=== PATIENT | female | born 1950 ===

== ENCOUNTER 2017-06-02 13:27 | Emergency (ER) | payer MEDICARE, OTHER ==
[2017-06-02 13:29] VITALS: BMI 29.3
[2017-06-02 13:50] VITALS: RESP 17
[2017-06-02] MEDS ORDERED: Sodium Chloride 0.9% 1,000 ML IV STA (13:52)
[2017-06-02] MEDS ORDERED: Alum-Mag Hydrox-Simethicone Susp (30 mL) PO STA (13:53)
[2017-06-02] MEDS ORDERED: Atrop/Hyosc/Scopal/PB Elixir (120 ml) PO STA (13:54)
--- NOTE | 2017-06-02 14:15 | ED PDOC ---
Arrival/HPI - General Chief Complaint: Abdominal Pain Time Seen by Provider: 06/02/17 13:51 Historian: Patient - History of Present Illness Narrative History of Present Illness (Text): 06/02/17 14:07 67 yo F with past medical history of anxiety, IBS and rheumatoid arthritis, complains of multiple episodes of diarrhea since 5 AM, 2 hours after developing diarrhea she started having gradual onset of intermittent upper abdominal pain described as gas pain, associated with nausea. 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 Reports having similar episodes in the past. Otherwise: (-) vomiting, (-) urinary symptoms, (-) fever, (-) melena, (-) hematochezia. Has history of prior abdominal surgery - cholecystectomy, appendectomy and hysterectomy. PMJermaine Bonner Past Medical History - Provider Review Nursing Documentation Reviewed: Yes - Infectious Disease Hx of Infectious Diseases: None - Tetanus Immunization Tetanus Immunization: Unknown - Cardiac Hx Cardiac Disorders: No - Pulmonary Hx Respiratory Disorders: No - Neurological Hx Neurological Disorder: No - HEENT Hx HEENT Disorder: No - Renal Hx Renal Disorder: No - Endocrine/Metabolic Hx Endocrine Disorders: No - Hematological/Oncological Hx Blood Disorders: No - Integumentary Hx Dermatological Disorder: No - Musculoskeletal/Rheumatological Hx Musculoskeletal Disorders: Yes Hx Arthritis: Yes Hx Rheumatoid Arthritis: Yes - Gastrointestinal Hx Gastrointestinal Disorders: Yes Hx Irritable Bowel: Yes - Genitourinary/Gynecological Hx Genitourinary Disorders: No - Psychiatric Hx Anxiety: Yes Hx Depression: Yes Hx Substance Use: No - Surgical History Hx Appendectomy: Yes Hx Section: Yes Hx Cholecystectomy: Yes - Anesthesia Hx Anesthesia: Yes Hx Anesthesia Reactions: No - Suicidal Assessment Feels Threatened In Home Enviroment: No Family/Social History - Physician Review Nursing Documentation Reviewed: Yes Family/Social History: No Known Family HX Smoking Status: Light Smoker < 10 Cigarettes Daily Hx Alcohol Use: No Hx Substance Use: No Hx Substance Use Treatment: No Allergies/Home Meds Allergies/Adverse Reactions: Allergies No Known Allergies Allergy (Verified 06/02/17 13:29) Review of Systems - Review of Systems Constitutional: Normal. absent: Fatigue, Weight Change, Fevers Respiratory: Normal. absent: SOB, Cough, Sputum Cardiovascular: Normal. absent: Chest Pain, Palpitations, Edema Gastrointestinal: Normal, Abdominal Pain, Diarrhea, Nausea. absent: Hematochezia, Hematemesis Musculoskeletal: Normal. absent: Arthralgias, Back Pain, Neck Pain Skin: Normal. absent: Rash, Pruritis, Skin Lesions Physical Exam - Physical Exam Narrative Physical Exam (Text): 06/02/17 14:15 GENERAL APPEARANCE: Patient is awake, alert, oriented x 3, in moderate painful distress. SKIN: Warm, dry; (-) cyanosis. EYES: (-) conjunctival pallor, (-) scleral icterus. ENMT: Mucous membranes dry. NECK: (-) tenderness, (-) stiffness, (-) lymphadenopathy. CHEST AND RESPIRATORY: (-) rales, (-) rhonchi, (-) wheezes; breath sounds equal bilaterally. HEART AND CARDIOVASCULAR: (-) irregularity; (-) murmur, (-) gallop. ABDOMEN AND GI: (-) distention. Bowel sounds active; (+) mid abdominal tenderness, (-) guarding, (-) rebound, (-) palpable masses, (-) CVA tenderness. EXTREMITIES: (-) deformity, (-) edema, (+) distal pulses. NEURO AND PSYCH: Mental status as above; (-) focal findings. Vital Signs Temp Pulse Resp BP Pulse Ox 06/02/17 15:27 98.7 F 76 17 127/70 100 06/02/17 13:33 97.6 F 77 17 129/86 98 Medical Decision Making ED Course and Treatment: 06/02/17 14:20 67 yo F with past medical history of anxiety, IBS and rheumatoid arthritis, complains of multiple episodes of diarrhea since 5 AM, 2 hours after developing diarrhea she started having gradual onset of intermittent upper abdominal pain described as gas pain, associated with nausea. Plan: - Labs - IVF - UA - Pepcid IV / zofran IV / GI cocktail - maalox, viscous lidocaine - Reassess / disposition 06/02/17 15:09 On reevaluation, patient is laying in bed comfortably in no acute distress. Patient reports significant improvement of abdominal pain, reports no nausea and reports no further episodes of diarrhea in the emergency room. On exam, abdomen remains soft with no tenderness, no guarding, no rebound. Lab results reviewed and discussed the patient in great detail. Patient states that she has zantac at home and has not been taking it for a while. Otherwise advised to follow up with primary care physician in 1-2 days without fail. Return to the emergency room at any time for any new or worsening symptoms. Patient states she fully agrees with and understands discharge instructions. States that she agrees with the plan and disposition. Verbalized and repeated discharge instructions and plan. I have given the patient opportunity to ask any additional questions. - Lab Interpretations Lab Results: 06/02/17 14:06 06/02/17 14:06 Lab Results 06/02/17 14:50: Urine Color Yellow, Urine Appearance Clear, Urine pH 6.0, Ur Specific [place] >= 1.030, Urine Protein 30 H, Urine Glucose (UA) Negative, Urine Ketones Negative, Urine Blood Trace-intact H, Urine Nitrate Negative, Urine Bilirubin Negative, Urine Urobilinogen 0.2, Ur Leukocyte Esterase Negative , Urine RBC 0 - 2, Urine WBC 1 - 3, Ur Epithelial Cells 6 - 8, Urine Bacteria Small 06/02/17 14:06: Sodium 141, Potassium 3.9, Chloride 106, Carbon Dioxide 26, Anion Gap 13, BUN 16, Creatinine 0.8, Est GFR ( Amer) > 60, Est GFR (Non- Af Amer) > 60, Random Glucose 99, Calcium 8.7, Total Bilirubin 0.5, AST 45 H, ALT 46, Alkaline Phosphatase 129 H, Total Protein 7.6, Albumin 4.1, Globulin 3.5 , Albumin/Globulin Ratio 1.2, Lipase 91 06/02/17 14:06: PT 10.8, INR 1.00, APTT 25.7 06/02/17 14:06: WBC 7.7, RBC 4.25, Hgb 13.2, Hct 39.3, MCV 92.5, MCH 31.1, MCHC 33.6, RDW 13.9, Plt Count 299, MPV 11.4 H, Gran % 60.4, Lymph % (Auto) 27.7, [place] % (Auto) 9.0 H, Eos % (Auto) 2.5, Baso % (Auto) 0.4, Gran # 4.66, Lymph # 2.1, [place] # 0.7 H, Eos # 0.2, Baso # 0.03 - Medication Orders Current Medication Orders: Discontinued Medications Al Hydrox/Mg Hydrox/Simethicone (Maalox Plus 30 Ml) 30 ml PO STAT STA Stop: 06/02/17 13:54 Last Admin: 06/02/17 14:24 Dose: 30 ml Belladonna/Phenobarbital ( Elixir) 5 ml PO STAT STA Stop: 06/02/17 13:55 Last Admin: 06/02/17 14:28 Dose: 5 ml Famotidine (Pepcid) 20 mg IVP STAT STA Stop: 06/02/17 13:53 Last Admin: 06/02/17 14:20 Dose: 20 mg Sodium Chloride (Sodium Chloride 0.9%) 1,000 mls @ 1,000 mls/hr IV .Q1H STA Stop: 06/02/17 14:51 Last Admin: 06/02/17 14:07 Dose: 1,000 mls/hr Lidocaine HCl (Lidocaine 2% Viscous) 15 ml PO STAT STA Stop: 06/02/17 13:54 Last Admin: 06/02/17 14:24 Dose: 15 ml Ondansetron HCl (Zofran Inj) 4 mg IVP STAT STA Stop: 06/02/17 13:53 Last Admin: 06/02/17 14:23 Dose: 4 mg - PA / POLITICAL ORGANIZER / Resident Statement / has reviewed & agrees with the documentation as recorded. Disposition/Present on Arrival - Present on Arrival Any Indicators Present on Arrival: No History of DVT/PE: No History of Uncontrolled Diabetes: No Urinary Catheter: No History of Decub. Ulcer: No History Surgical Site Infection Following: None - Disposition Have Diagnosis and Disposition been Completed?: Yes Diagnosis: Abdominal pain, Dyspepsia Disposition: HOME/ ROUTINE Disposition Time: 15:30 Patient Plan: Discharge Condition: IMPROVED Discharge Instructions (ExitCare): Chronic Indigestion (ED), Acute Abdominal Pain (ED) Print Language: DOMINICAN Additional Instructions: Thank you for letting us take care of you today. You were treated for abdominal pain, dyspepsia. The emergency medical care you received today was directed at your acute symptoms. If you were prescribed any medication, please fill it and take as directed. It may take several days for your symptoms to resolve. Return to the Emergency Department if your symptoms worsen, do not improve, or if you have any other problems. Please contact your doctor in 2 days for re-evaluation and follow up. Bring any paperwork you were given at discharge with you along with any medications you are taking to your follow up visit. Our treatment cannot replace ongoing medical care by a primary care provider (PCP) outside of the emergency department. Thank you for allowing the [facility] team to be part of your care today. Referrals: Nesha Chavez MD [Medical Doctor] - Follow up with primary Forms: [employer] (Faroese)
[2017-06-02 14:19] LABS: BASO # 0.03 K/mm3 (0.0-2.0); BASO % 0.4 % (0.0-3.0); EOS # 0.2 (0.0-0.7); EOS % 2.5 % (1.5-5.0); GRAN # 4.66 (1.4-6.5); GRAN % 60.4 % (50.0-68.0); HEMATOCRIT 39.3 % (36.0-48.0); LYMPH # 2.1 (1.2-3.4); LYMPH % 27.7 % (22.0-35.0); MEAN CELL VOLUME 92.5 fl (80.0-105.0); MEAN CORPUSCULAR HEMOGLOBIN 31.1 pg (25.0-35.0); MEAN CORPUSCULAR HGB CONC 33.6 g/dl (31.0-37.0); MEAN PLATELET VOLUME 11.4 fl (7.0-11.0); MONO # 0.7 (0.1-0.6); RED CELL DISTRIBUTION WIDTH 13.9 % (11.5-14.5); WHITE BLOOD COUNT 7.7 10^3/ul (4.5-11.0)
[2017-06-02 14:23] LABS: ALB/GLOB RATIO 1.2 (1.1-1.8); ALKALINE PHOSPHATASE 129 U/L (38-126); ALT/SGPT 46 U/L (7-56); AST/SGOT 45 U/L (14-36); BILIRUBIN,TOTAL 0.5 mg/dL (0.2-1.3); BLOOD UREA NITROGEN 16 mg/dL (7-21); CALCIUM 8.7 mg/dL (8.4-10.5); CARBON DIOXIDE 26 mmol/L (21-33); CHLORIDE 106 mmol/L (98-107); GFR AFRICAN-AMERICAN > 60; GLUCOSE,RANDOM 99 mg/dL (70-110); LIPASE 91 U/L (23-300); POTASSIUM 3.9 mmol/L (3.6-5.0); SODIUM 141 mmol/L (132-148); TOTAL PROTEIN 7.6 g/dL (5.8-8.3)
[2017-06-02 14:27] LABS: PARTIAL THROMBOPLASTIN TIME 25.7 Seconds (23.7-30.8)
[2017-06-02 15:18] LABS: URINE BILIRUBIN NEGATIVE (NEGATIVE); URINE BLOOD TRACE-INTACT (NEGATIVE); URINE GLUCOSE (UA) NEGATIVE (NEGATIVE); URINE KETONE NEGATIVE (NEGATIVE); URINE LEUKOCYTE ESTERASE NEGATIVE Leu/uL (NEGATIVE); URINE PROTEIN 30 mg/dL (<30 mg/dL); URINE UROBILINOGEN 0.2 E.U./dL (<1 E.U./dL)
[2017-06-02 15:27] LABS: URINE APPEARANCE CLEAR (CLEAR); URINE COLOR YELLOW (YELLOW)
[2017-06-02 15:30] LABS: URINE RBC 0 - 2 /hpf (0-2)
[2017-06-02 15:32] LABS: URINE BACTERIA SMALL (NEG)
[2017-06-02 15:57] VITALS: BP 127/70; PULSE 76; TEMP 98.7; O2SAT 100
== END 2017-06-02 15:58 | disposition home or self-care (01) ==
LOC: ED 13:27
DX: R10.13 Epigastric pain (principal); M06.9 Rheumatoid arthritis, unspecified; Z90.49 Acquired absence of other specified parts of digestive tract
CPT/HCPCS: 80053; 81001; 83690; 85025; 85610; 85730; 87086; 96361; 96374; 96375; 99283; J2405; J7040

== ENCOUNTER 2017-08-28 00:25 | Emergency (ER) | payer MEDICARE, OTHER ==
[2017-08-28 00:25] VITALS: BMI 29.3
[2017-08-28 00:36] VITALS: RESP 18; TEMP 98.3
--- NOTE | 2017-08-28 01:27 | ED PDOC ---
Arrival/HPI - General Chief Complaint: GI Problem Time Seen by Provider: 08/28/17 00:48 Historian: Patient - History of Present Illness Narrative History of Present Illness (Text): 08/28/17 01:27 Josafat Choudhury is a 67 year old female, whose past medical history includes anxiety, IBS, RA, and bipolar disorder, who presents to the Emergency department complaining of multiple episodes of diarrhea since yesterday morning. Patient reports associated abdominal cramping and nausea. Patient denies any fever, chills, chest pain, shortness of breath, vomiting, urinary symptoms, back pain, neck pain, headache, dizziness, or any other complaints. PMD: Dr. Chapin Bonner Time/Duration: Other (yesterday morning) Symptom Onset: Gradual Symptom Course: Unchanged Activities at Onset: Light Context: Home Past Medical History - Provider Review Nursing Documentation Reviewed: Yes - Infectious Disease Hx of Infectious Diseases: None - Tetanus Immunization Tetanus Immunization: Unknown - Cardiac Hx Cardiac Disorders: No - Pulmonary Hx Respiratory Disorders: No - Neurological Hx Neurological Disorder: No - HEENT Hx HEENT Disorder: No - Renal Hx Renal Disorder: No - Endocrine/Metabolic Hx Endocrine Disorders: No - Hematological/Oncological Hx Blood Disorders: No - Integumentary Hx Dermatological Disorder: No - Musculoskeletal/Rheumatological Hx Musculoskeletal Disorders: Yes Hx Arthritis: Yes Hx Rheumatoid Arthritis: Yes - Gastrointestinal Hx Gastrointestinal Disorders: Yes Hx Irritable Bowel: Yes - Genitourinary/Gynecological Hx Genitourinary Disorders: No - Psychiatric Hx Anxiety: Yes Hx Depression: Yes Hx Substance Use: No - Surgical History Hx Appendectomy: Yes Hx Section: Yes Hx Cholecystectomy: Yes - Anesthesia Hx Anesthesia: Yes Hx Anesthesia Reactions: No - Suicidal Assessment Feels Threatened In Home Enviroment: No Family/Social History - Physician Review Nursing Documentation Reviewed: Yes Family/Social History: Unknown Family HX Smoking Status: Light Smoker < 10 Cigarettes Daily Hx Alcohol Use: No Hx Substance Use: No Hx Substance Use Treatment: No Allergies/Home Meds Allergies/Adverse Reactions: Allergies No Known Allergies Allergy (Verified 06/02/17 13:29) Home Medications: Home Meds Medication Instructions Recorded Confirmed Clonazepam [Klonopin] 0.5 mg PO PRN PRN 08/28/17 08/28/17 Levothyroxine [Synthroid] 25 mcg PO DAILY 08/28/17 08/28/17 Review of Systems - Physician Review All systems were reviewed & negative as marked: Yes - Review of Systems Constitutional: Normal. absent: Fevers Eyes: Normal ENT: Normal Respiratory: Normal. absent: SOB, Cough Cardiovascular: Normal. absent: Chest Pain Gastrointestinal: Abdominal Pain, Diarrhea, Nausea. absent: Vomiting Genitourinary Female: Normal. absent: Dysuria, Hematuria, Urine Output Changes Musculoskeletal: Normal. absent: Back Pain, Neck Pain Skin: Normal. absent: Rash Neurological: Normal. absent: Headache, Dizziness Endocrine: Normal Hemo/Lymphatic: Normal Psychiatric: Normal Physical Exam Vital Signs Reviewed: Yes Vital Signs Temp Pulse Resp BP Pulse Ox 08/28/17 04:13 98.3 F 75 18 119/73 97 08/28/17 00:34 98.3 F 103 H 18 103/69 96 Temperature: Afebrile Blood Pressure: Normal Pulse: Regular Respiratory Rate: Normal Appearance: Positive for: Well-Appearing, Non-Toxic, Comfortable Pain Distress: None Mental Status: Positive for: Alert and Oriented X 3 - Systems Exam Head: Present: Atraumatic, Normocephalic Pupils: Present: PERRL Extroacular Muscles: Present: EOMI Conjunctiva: Present: Normal Mouth: Present: Moist Mucous Membranes Neck: Present: Normal Range of Motion Respiratory/Chest: Present: Clear to Auscultation, Good Air Exchange. No: Respiratory Distress, Accessory Muscle Use Cardiovascular: Present: Regular Rate and Rhythm, Normal S1, S2. No: Murmurs Abdomen: Present: Normal Bowel Sounds. No: Tenderness, Distention, Peritoneal Signs Back: Present: Normal Inspection Upper Extremity: Present: Normal Inspection. No: Cyanosis, Edema Lower Extremity: Present: Normal Inspection. No: Edema Neurological: Present: GCS=15, CN II-XII Intact, Speech Normal Skin: Present: Warm, Dry, Normal Color. No: Rashes Psychiatric: Present: Alert, Oriented x 3, Normal Insight, Normal Concentration Medical Decision Making ED Course and Treatment: 08/28/17 01:27 Impression: 67 year old female complaining of multiple episodes of diarrhea, nausea, and abdominal cramping since yesterday morning. Differential Diagnosis included but are not limited to: IBS vs. gastroenteritis Plan: -- Labs, lipase -- IV fluids -- Reassess and disposition Prior Visits: Notes and results from previous visits were reviewed. On 06/02/2017, pt was seen in the Emergency department for multiple episodes of diarrhea, upper abdominal pain, and nausea. Pt was d/c home. Progress Notes: 08/28/17 05:25 On re-evaluation, patient feels better and is in no acute distress. I have discussed the results and plan with the patient, who expresses understanding. Patient in agreement with plan to be discharged home. Patient is stable for discharge. Patient was instructed to follow up with physician or return if symptoms worsen or new concerning symptoms arise. - Lab Interpretations Lab Results: 08/28/17 00:45 08/28/17 00:45 Lab Results 08/28/17 00:45: WBC 9.9 D, RBC 4.36, Hgb 13.8, Hct 40.2, MCV 92.2, MCH 31.7, MCHC 34.3, RDW 13.9, Plt Count 306, MPV 11.8 H 08/28/17 00:45: Sodium 139, Potassium 3.9, Chloride 105, Carbon Dioxide 23, Anion Gap 14, BUN 18, Creatinine 0.9, Est GFR ( Amer) > 60, Est GFR (Non- Af Amer) > 60, Random Glucose 109, Calcium 9.2, Total Bilirubin 0.7, AST 34, ALT 37, Alkaline Phosphatase 112, Total Protein 7.9, Albumin 4.1, Globulin 3.8, Albumin/Globulin Ratio 1.1, Lipase 85 I have reviewed the lab results: Yes - Medication Orders Current Medication Orders: Discontinued Medications Ciprofloxacin (Cipro) 500 mg PO ONCE STA PRN Reason: Protocol Stop: 08/28/17 05:21 Last Admin: 08/28/17 05:35 Dose: 500 mg Sodium Chloride (Sodium Chloride 0.9%) 1,000 mls @ 999 mls/hr IV .Q1H1M STA Stop: 08/28/17 02:28 Last Admin: 08/28/17 01:41 Dose: 999 mls/hr eMAR Start Stop Document 08/28/17 01:41 OCS (Rec: 08/28/17 01:41 OCS [id number]) Intravenous Solution Start Date 08/28/17 Start Time 01:41 End Date 08/28/17 End time 02:42 Total Infusion Time 61 Ondansetron HCl (Zofran Inj) 4 mg IVP ONCE ONE Stop: 08/28/17 04:15 Last Admin: 08/28/17 04:29 Dose: 4 mg IVP Administration Document 08/28/17 04:29 OCS (Rec: 08/28/17 04:29 OCS [id number]) Charges for Administration # of IVP Administrations 1 - Scribe Statement The provider has reviewed the documentation as recorded by the Martiibshilo Llanes Provider Scribe Attestation: All medical record entries made by the Scribe were at my direction and personally dictated by me. I have reviewed the chart and agree that the record accurately reflects my personal performance of the history, physical exam, medical decision making, and the department course for this patient. I have also personally directed, reviewed, and agree with the discharge instructions and disposition. Disposition/Present on Arrival - Present on Arrival Any Indicators Present on Arrival: No History of DVT/PE: No History of Uncontrolled Diabetes: No Urinary Catheter: No History of Decub. Ulcer: No History Surgical Site Infection Following: None - Disposition Have Diagnosis and Disposition been Completed?: Yes Diagnosis: Irritable bowel syndrome (IBS), Diarrhea Disposition: HOME/ ROUTINE Disposition Time: 05:25 Patient Plan: Discharge Condition: GOOD Discharge Instructions (ExitCare): Acute Diarrhea (ED) Additional Instructions: Drink plenty of liquids/Gatorade/take meds as prescribed/follow up with your doctor this week Prescriptions: Ciprofloxacin [Cipro] 500 mg PO BID #6 tab Referrals: Don Bonner MD [Primary Care Provider] - Follow up with primary Forms: [employer] (Citizen [place])
[2017-08-28] MEDS ORDERED: Sodium Chloride 0.9% 1,000 ML IV STA (01:28)
[2017-08-28 02:18] LABS: ALB/GLOB RATIO 1.1 (1.1-1.8); ALKALINE PHOSPHATASE 112 U/L (38-126); ALT/SGPT 37 U/L (7-56); AST/SGOT 34 U/L (14-36); BILIRUBIN,TOTAL 0.7 mg/dL (0.2-1.3); BLOOD UREA NITROGEN 18 mg/dL (7-21); CALCIUM 9.2 mg/dL (8.4-10.5); CARBON DIOXIDE 23 mmol/L (21-33); CHLORIDE 105 mmol/L (98-107); GFR AFRICAN-AMERICAN > 60; GLUCOSE,RANDOM 109 mg/dL (70-110); LIPASE 85 U/L (23-300); POTASSIUM 3.9 mmol/L (3.6-5.0); SODIUM 139 mmol/L (132-148); TOTAL PROTEIN 7.9 g/dL (5.8-8.3)
[2017-08-28 02:26] LABS: HEMATOCRIT 40.2 % (36.0-48.0); MEAN CELL VOLUME 92.2 fl (80.0-105.0); MEAN CORPUSCULAR HEMOGLOBIN 31.7 pg (25.0-35.0); MEAN CORPUSCULAR HGB CONC 34.3 g/dl (31.0-37.0); MEAN PLATELET VOLUME 11.8 fl (7.0-11.0); RED CELL DISTRIBUTION WIDTH 13.9 % (11.5-14.5); WHITE BLOOD COUNT 9.9 10^3/ul (4.5-11.0)
[2017-08-28 04:13] VITALS: BP 119/73; PULSE 75; O2SAT 97
== END 2017-08-28 05:35 | disposition home or self-care (01) ==
LOC: ED 00:25
DX: K58.0 Irritable bowel syndrome with diarrhea (principal)
CPT/HCPCS: 80053; 83690; 85027; 96361; 96374; 99283; J2405; J7040

== ENCOUNTER 2018-04-12 23:09 | Observation (INO) | payer MEDICARE, OTHER ==
[2018-04-12 23:24] VITALS: BMI 29.7
[2018-04-12 23:52] LABS: HEMOGLOBIN 12.9 g/dL (12.0-16.0); MEAN CELL VOLUME 90.4 fl (80.0-105.0); MEAN CORPUSCULAR HEMOGLOBIN 30.9 pg (25.0-35.0); MEAN CORPUSCULAR HGB CONC 34.2 g/dl (31.0-37.0); MEAN PLATELET VOLUME 11.1 fl (7.0-11.0); RBC 4.17 10^6/uL (3.5-6.1); RED CELL DISTRIBUTION WIDTH 13.6 % (11.5-14.5); WHITE BLOOD COUNT 9.6 10^3/ul (4.5-11.0)
--- NOTE | 2018-04-12 23:52 | ED PDOC ---
Arrival/HPI - General Time Seen by Provider: 04/12/18 23:13 Historian: Patient - History of Present Illness Narrative History of Present Illness (Text): 04/12/18 23:49 68 year old female, whose past medical history includes bipolar disorder and hyperthyroidism, who presents to the emergency department complaining of dizziness early today. Patient notes associated episodes of near syncope. Patient states she feels like she was going to pass out on different occasions. Patient denies any fevers, chills, chest pain, shortness of breath, abdominal pain, nausea, vomiting, diarrhea, back pain, neck pain, headache, or any other complaint. Time/Duration: Other (today) Symptom Onset: Gradual Symptom Course: Unchanged Activities at Onset: Light Context: Home Past Medical History - Provider Review Nursing Documentation Reviewed: Yes - Infectious Disease Hx of Infectious Diseases: None - Tetanus Immunization Tetanus Immunization: Unknown - Cardiac Hx Cardiac Disorders: No - Pulmonary Hx Respiratory Disorders: No - Neurological Hx Neurological Disorder: No - HEENT Hx HEENT Disorder: No - Renal Hx Renal Disorder: No - Endocrine/Metabolic Hx Endocrine Disorders: No - Hematological/Oncological Hx Blood Disorders: No - Integumentary Hx Dermatological Disorder: No - Musculoskeletal/Rheumatological Hx Musculoskeletal Disorders: Yes Hx Arthritis: Yes Hx Rheumatoid Arthritis: Yes - Gastrointestinal Hx Gastrointestinal Disorders: Yes Hx Irritable Bowel: Yes - Genitourinary/Gynecological Hx Genitourinary Disorders: No - Psychiatric Hx Anxiety: Yes Hx Depression: Yes Hx Substance Use: No - Surgical History Hx Appendectomy: Yes Hx Section: Yes Hx Cholecystectomy: Yes - Anesthesia Hx Anesthesia: Yes Hx Anesthesia Reactions: No - Suicidal Assessment Feels Threatened In Home Enviroment: No Family/Social History - Physician Review Nursing Documentation Reviewed: Yes Family/Social History: Unknown Family HX Smoking Status: Light Smoker < 10 Cigarettes Daily Hx Alcohol Use: No Hx Substance Use: No Hx Substance Use Treatment: No Allergies/Home Meds Allergies/Adverse Reactions: Allergies No Known Allergies Allergy (Verified 04/12/18 23:24) Home Medications: Home Meds Medication Instructions Recorded Confirmed Clonazepam [Klonopin] 0.5 mg PO PRN PRN 08/28/17 08/28/17 Levothyroxine [Synthroid] 25 mcg PO DAILY 08/28/17 08/28/17 Review of Systems - Physician Review All systems were reviewed & negative as marked: Yes - Review of Systems Constitutional: Normal Eyes: Normal ENT: Normal Respiratory: Normal. absent: SOB, Cough Cardiovascular: Normal. absent: Chest Pain Gastrointestinal: Normal. absent: Abdominal Pain, Diarrhea, Nausea, Vomiting Genitourinary Female: Normal. absent: Dysuria, Frequency, Hematuria Musculoskeletal: Normal. absent: Back Pain, Neck Pain Skin: Normal. absent: Rash Neurological: Dizziness. absent: Headache Endocrine: Normal Hemo/Lymphatic: Normal Psychiatric: Normal Physical Exam Vital Signs Reviewed: Yes Vital Signs Temp Pulse Resp BP Pulse Ox 04/12/18 23:20 97.8 F 75 18 117/84 99 Temperature: Afebrile Blood Pressure: Normal Pulse: Regular Respiratory Rate: Normal Appearance: Positive for: Well-Appearing, Non-Toxic, Comfortable Pain Distress: None Mental Status: Positive for: Alert and Oriented X 3 - Systems Exam Head: Present: Atraumatic, Normocephalic Pupils: Present: PERRL Extroacular Muscles: Present: EOMI Conjunctiva: Present: Normal Mouth: Present: Moist Mucous Membranes Neck: Present: Normal Range of Motion Respiratory/Chest: Present: Clear to Auscultation, Good Air Exchange. No: Respiratory Distress, Accessory Muscle Use Cardiovascular: Present: Regular Rate and Rhythm, Normal S1, S2. No: Murmurs Abdomen: No: Tenderness, Distention, Peritoneal Signs Back: Present: Normal Inspection Upper Extremity: Present: Normal Inspection. No: Cyanosis, Edema Lower Extremity: Present: Normal Inspection. No: Edema Neurological: Present: GCS=15, CN II-XII Intact, Speech Normal Skin: Present: Warm, Dry, Normal Color. No: Rashes Psychiatric: Present: Alert, Oriented x 3, Normal Insight, Normal Concentration Medical Decision Making ED Course and Treatment: 04/12/18 23:57 Impression: 68 year old female presents to the emergency department complaining of dizziness today. Plan: -- CT Head -- EKG -- Cardiac enzymes -- Labs -- Chest X-ray -- Reassess and disposition Progress Notes: EKG reviewed, shows NSR at [address]pm[address] Non-specidic ST changes. 04/13/18 01:[address] Coto, who accepts pt to his service. Dr. Jackson is on consult. - Lab Interpretations Lab Results: 04/12/18 23:27 04/12/18 23:27 Lab Results 04/12/18 23:27: WBC 9.6, RBC 4.17, Hgb 12.9, Hct 37.7, MCV 90.4, MCH 30.9, MCHC 34.2, RDW 13.6, Plt Count 291, MPV 11.1 H 04/12/18 23:27: Sodium 142, Potassium 4.1, Chloride 106, Carbon Dioxide 24, Anion Gap 16, BUN 23 H, Creatinine 0.9, Est GFR ( Amer) > 60, Est GFR ( Non-Af Amer) > 60, Random Glucose 110, Calcium 9.1, Total Bilirubin 0.2, AST 29 , ALT 32, Alkaline Phosphatase 104, Lactate Dehydrogenase 438, Total Creatine Kinase 111, Troponin I < 0.01, Total Protein 8.0, Albumin 4.2, Globulin 3.7, Albumin/Globulin Ratio 1.1 04/12/18 23:27: PT 11.2, INR 0.98, APTT 27.8 - RAD Interpretation Radiology Orders: 04/12/18 23:24 HEAD W/O CONTRAST [CT] Stat 04/12/18 23:25 CHEST PORTABLE [RAD] Stat - Medication Orders Current Medication Orders: Discontinued Medications Meclizine HCl (Antivert) 25 mg PO STAT STA Stop: 04/13/18 01:09 - Scribe Statement The provider has reviewed the documentation as recorded by the Scribshilo Morataya All medical record entries made by the Scribe were at my direction and personally dictated by me. I have reviewed the chart and agree that the record accurately reflects my personal performance of the history, physical exam, medical decision making, and the department course for this patient. I have also personally directed, reviewed, and agree with the discharge instructions and disposition. Disposition/Present on Arrival - Present on Arrival Any Indicators Present on Arrival: No History of DVT/PE: No History of Uncontrolled Diabetes: No Urinary Catheter: No History Surgical Site Infection Following: None - Disposition Have Diagnosis and Disposition been Completed?: Yes Diagnosis: Near syncope, Dizziness Disposition: HOSPITALIZED Disposition Time: :28 Condition: STABLE Referrals: Don Bonner MD [Primary Care Provider] - Follow up with primary
[2018-04-13] LABS: ALB/GLOB RATIO 1.1 (1.1-1.8); ALBUMIN 4.2 g/dL (3.0-4.8); ALT/SGPT 32 U/L (7-56); AST/SGOT 29 U/L (14-36); BLOOD UREA NITROGEN 23 mg/dL (7-21); CALCIUM 9.1 mg/dL (8.4-10.5); GFR AFRICAN-AMERICAN > 60; GFR NON-AFRICAN AMERICAN > 60
[2018-04-13 00:07] LABS: INR 0.98 (0.93-1.08); PARTIAL THROMBOPLASTIN TIME 27.8 Seconds (25.1-36.5); PROTHROMBIN TIME 11.2 SECONDS (9.4-12.5)
[2018-04-13 00:12] LABS: TROPONIN I < 0.01 ng/mL
--- NOTE | 2018-04-13 08:06 | CT ---
Date of service: 04/13/2018 PROCEDURE: CT HEAD WITHOUT CONTRAST. HISTORY: near syncope/dizziness COMPARISON: None available. TECHNIQUE: Axial computed tomography images were obtained through the head/brain without intravenous contrast. Radiation dose: Total exam DLP = 871.06 mGy-cm. This CT exam was performed using one or more of the following dose reduction techniques: Automated exposure control, adjustment of the mA and/or kV according to patient size, and/or use of iterative reconstruction technique. FINDINGS: HEMORRHAGE: No intracranial hemorrhage. BRAIN: There are mild chronic microangiopathic changes. There is no mass, mass effect or abnormal extra-axial fluid collection. There is no territorial infarction. The midline sagittal structures are normal. VENTRICLES: There is mild age-related global parenchymal volume loss and proportionate enlargement of the ventricles and cortical sulci. CALVARIUM: There is no calvarial fracture or extracranial soft tissue swelling. PARANASAL SINUSES: Predominantly clear. MASTOID AIR CELLS: Predominantly clear. OTHER FINDINGS: None. IMPRESSION: No acute intracranial abnormality.
--- NOTE | 2018-04-13 08:33 | RAD ---
Date of service: 04/13/2018 HISTORY: Dizziness COMPARISON: 07/29/2015. FINDINGS: LUNGS: The lungs are well inflated. There is subsegmental atelectasis in both lung bases, worse on the left. No focal consolidation. PLEURA: No significant pleural effusion identified, no pneumothorax apparent. CARDIOVASCULAR: Normal. OSSEOUS STRUCTURES: No significant abnormalities. VISUALIZED UPPER ABDOMEN: Normal. OTHER FINDINGS: None. IMPRESSION: No active pulmonary disease.
[2018-04-13] MEDS ORDERED: Levothyroxine 25 MCG TAB PO SCH (08:48)
--- NOTE | 2018-04-13 12:14 | CARD ---
APPROVED REPORT Date of service: 04/12/2018 EKG Measurement Heart [id number] ID [id number] <Conclusion> Normal sinus rhythm Possible Left atrial enlargement Borderline ECG
[2018-04-13 17:58] VITALS: BP 117/67; PULSE 83; RESP 20; TEMP 97.8; O2SAT 95
--- NOTE | 2018-04-13 22:19 | CON ---
DATE: REASON FOR CONSULTATION: Dizziness. HISTORY OF PRESENT ILLNESS: The patient is a 68-year-old female who we have been asked for evaluation of dizziness. The patient has been experiencing dizziness which is described as lightheaded feeling. Yesterday she was in spiritism and her dizziness got worsened to the extent that she almost passed out. She has never passed out though. She did not had any focal weakness in arms or legs. The patient called her daughter and went home. She noted that the patient was having severe dizziness which is described as spinning sensation. It was associated with nausea. Her dizziness lasted for several hours and then spontaneously resolved. At the moment, she feels fine. She does complain of ringing in her ears. Denies any loss of hearing or pressure sensation in the ear. REVIEW OF SYSTEMS: Denies any headache, chest pain, shortness of breath, abdominal pain, constipation, diarrhea, dysuria, pyuria, cough with sputum production. PAST MEDICAL HISTORY: Includes anxiety, hypothyroidism. MEDICATIONS: At home included Synthroid, Klonopin and ciprofloxacin. ALLERGIES: NO KNOWN DRUG ALLERGIES. SOCIAL HISTORY: Denies smoking, use of alcohol or illicit drugs. FAMILY HISTORY: Reviewed and noncontributory to the case. PHYSICAL EXAMINATION: GENERAL: The patient is an elderly pleasant female, sitting, in no acute distress. VITAL SIGNS: Her blood pressure is 117/67, heart rate is 83 per minute, breathing at the rate of 16 per minute, temperature is 97.8 degrees Fahrenheit. HEENT: Head is normocephalic, atraumatic. NECK: Supple. There are no carotid bruit. LUNGS: Clear. CARDIOVASCULAR: S1, S2 audible. No murmurs. ABDOMEN: Soft and nontender with bowel sounds present. NEUROLOGIC: Mental status, the patient is awake and alert, oriented to time, place, person. Speech is fluent. Naming and repetition normal. Memory and cognition are intact. Cranial nerve examination, pupils are 3 mm bilaterally, reactive to light. Visual larson are full. Extraocular movements are intact. There is no facial asymmetry. Palate is upgoing bilaterally and tongue is midline. Motor examination, tone is normal. Power is 5/5 bilaterally in all extremities. Reflexes +2 and symmetrical. Plantars downgoing bilaterally. Cerebellar examination, [id number] shows no dysmetria. Gait is narrow based. Sensory exam is intact to soft touch and pinprick. LABORATORY DATA: Labs reviewed, shows WBC of 9.6, hemoglobin 12.9, hematocrit 37.7 and platelets of 291. The patient's sodium is 142, potassium 4.1, chloride of 106, carbon dioxide content 24, BUN of 23, creatinine 0.9 and glucose of 110. The patient had a CT scan of the head done which shows no acute intracranial abnormality. IMPRESSION: Dizziness which appears to be secondary to labyrinthine dysfunction. RECOMMENDATIONS 1. The patient to have MRI of the brain without contrast. However, she does not want to stay in the hospital wants to have it done as outpatient. They will get it done as outpatient. 2. The patient was given meclizine which she may take on an as-needed basis. 3. The patient to be followed up in my office on 04/15/2018 for followup and to set up for MRI of the brain as well as if any other testing required. 4. The patient is neurologically stable for discharge with outpatient followup. Thank you for the opportunity to participate in the care of this patient. Ross Isaac MD
--- NOTE | 2018-04-15 08:03 | HP ---
DATE OF EXAM: 04/13/2018 HISTORY AND PHYSICAL AND DISCHARGE SUMMARY SUMMARY: This 68-year-old female was admitted to the [facility] with acute vertigo. The patient was seen in consultation by Dr. Ross Isaac from Neurology. The patient was admitted with dizziness. She describes it as a lightheaded feeling that occurred the day prior on her admission. She states there was no associated headache, weakness or seizure. When she came to the emergency room, she was felt to have vertigo, was given meclizine with good results. The patient was seen in consultation by Dr. Ross Isaac from Neurology. He recommended an MRI of the brain without contrast, which the patient refused to do and stated she would do as an outpatient. He cleared the patient for discharge with oral meclizine, which had worked and felt that the patient was neurologically stable for discharge to home. The patient's past medical history is significant for anxiety neurosis, hypothyroidism and she takes Synthroid, Klonopin as an outpatient and was given a prescription for meclizine 25 mg p.o. b.i.d. upon discharge by Dr. Isaac. At the time of her discharge, her temperature was 97.8, respirations 20, pulse 83 and blood pressure 117/67 with a pulse ox of 95%. White count was 9600, hemoglobin 12.9, hematocrit 37.7, platelets 291,000. PT/INR 0.98, PTT 27.8. Sodium 142, K 4.1, chloride 106, bicarb 24, BUN 23, creatinine 0.9, random blood sugar 110, bilirubin 0.2, AST 29, ALT 32, alk phos 104, CPK 111 and troponin less than 0.01. EKG was reviewed. It showed normal sinus rhythm with nonspecific ST-T wave changes. Her head CT was reviewed. It showed no intracranial abnormalities. There was no evidence of any mass or intracranial bleeding. A chest x-ray was reviewed. It showed well-aerated lung larson with subsegmental atelectasis at both lung bases. No evidence of active pulmonary disease and the patient was cleared for discharge to home by Dr. Isaac. She was given written prescriptions and advised to follow up with her PMD , Dr. Don Bonner within 48 hours. The patient was also advised for any change in signs and symptoms to present directly to the [facility] ER. Flavia Coto MD MTDD
== END 2018-04-13 19:12 | disposition home or self-care (01) ==
LOC: ED 23:09 → ERH 04-13 01:24 → 3RSO 04-13 03:28
PROVIDERS: ADMIT Internal Medicine; ATTEND Internal Medicine
DX: H83.2X9 Labyrinthine dysfunction, unspecified ear (principal); E03.9 Hypothyroidism, unspecified; F31.9 Bipolar disorder, unspecified; K58.9 Irritable bowel syndrome, unspecified; M06.9 Rheumatoid arthritis, unspecified; Z90.49 Acquired absence of other specified parts of digestive tract; J98.11 Atelectasis
CPT/HCPCS: 70450; 71045; 80053; 82550; 83615; 84484; 85027; 85610; 85730; 93005; 99285; G0378

== ENCOUNTER 2019-02-14 17:48 | Emergency (ER) | payer MEDICARE, OTHER ==
[2019-02-14 18:06] VITALS: BMI 49.9
[2019-02-14 18:07] VITALS: BP 117/81; PULSE 86; RESP 18; TEMP 97.4; O2SAT 96
--- NOTE | 2019-02-14 18:15 | ED PDOC ---
Arrival/HPI - General Chief Complaint: Pain, Chronic Time Seen by Provider: 02/14/19 18:06 Historian: Patient - History of Present Illness Narrative History of Present Illness (Text): 02/14/19 18:50 69 y/o female with PMH of rheumatoid arthritis, IBS, hypothyroidism, presents to the ED c/o chronic joint pain x 3 months. Pain is worst in bilateral shoulders, hands, and knees. Pt received Enbrel injection weekly for her rheumatoid arthritis, last dose last week. Pt was supposed to receive a dose yesterday but the office forgot to order the medication, so she did not receive her dose. Next appointment on 02/18/19. States recently the Enbrel has stopped working because she has been on it for 9 years. States this pain is typical of her rheumatoid arthritis. Has not taken any medication for pain today. Denies fever, chills, c hest pain, SOB, numbness, weakness, paresthesias, palpitations, headache, neck pain, dizziness, abdominal pain, nausea, vomiting, back pain or any other associated symptoms. Past Medical History - Provider Review Nursing Documentation Reviewed: Yes - Infectious Disease Hx of Infectious Diseases: None - Tetanus Immunization Tetanus Immunization: Unknown - Cardiac Hx Cardiac Disorders: No - Pulmonary Hx Respiratory Disorders: No - Neurological Hx Neurological Disorder: No - HEENT Hx HEENT Disorder: No - Renal Hx Renal Disorder: No - Endocrine/Metabolic Hx Endocrine Disorders: No - Hematological/Oncological Hx Blood Disorders: No - Integumentary Hx Dermatological Disorder: No - Musculoskeletal/Rheumatological Hx Arthritis: Yes Hx Falls: No - Gastrointestinal Hx Gastrointestinal Disorders: Yes Hx Gall Bladder Disease: Yes Other/Comment: Irritable Bowel Syndrome - Genitourinary/Gynecological Hx Genitourinary Disorders: No - Psychiatric Hx Anxiety: Yes Hx Bipolar Disorder: Yes Hx Depression: Yes Hx Substance Use: No - Surgical History Hx Appendectomy: Yes Hx Cholecystectomy: Yes - Anesthesia Hx Anesthesia: Yes Hx Anesthesia Reactions: No - Suicidal Assessment Feels Threatened In Home Enviroment: No Family/Social History - Physician Review Nursing Documentation Reviewed: Yes Family/Social History: Unknown Family HX Smoking Status: Light Smoker < 10 Cigarettes Daily Hx Alcohol Use: No Hx Substance Use: No Hx Substance Use Treatment: No Allergies/Home Meds Allergies/Adverse Reactions: Allergies No Known Allergies Allergy (Verified 02/14/19 18:07) Home Medications: Home Meds Medication Instructions Recorded Confirmed Clonazepam [Klonopin] 0.5 mg PO PRN PRN 08/28/17 02/14/19 Review of Systems - Review of Systems Constitutional: Normal. absent: Fatigue, Fevers Eyes: Normal. absent: Vision Changes ENT: Normal. absent: Sore Throat, Sinus Congestion Respiratory: Normal. absent: SOB, Cough Cardiovascular: Normal. absent: Chest Pain, Palpitations Gastrointestinal: Normal. absent: Abdominal Pain, Nausea, Vomiting Genitourinary Female: Normal. absent: Dysuria, Frequency Musculoskeletal: Other (generalized body pain) Skin: Normal. absent: Rash Neurological: Normal. absent: Headache, Dizziness Physical Exam Vital Signs Reviewed: Yes Vital Signs Temp Pulse Resp BP Pulse Ox 02/14/19 18:04 97.4 F L 86 18 117/81 96 Temperature: Afebrile Blood Pressure: Normal Pulse: Regular Respiratory Rate: Normal Appearance: Positive for: Well-Appearing, Non-Toxic, Comfortable Pain Distress: None Mental Status: Positive for: Alert and Oriented X 3 - Systems Exam Head: Present: Atraumatic, Normocephalic Pupils: Present: PERRL Extroacular Muscles: Present: EOMI Conjunctiva: Present: Normal Mouth: Present: Moist Mucous Membranes Neck: Present: Normal Range of Motion Respiratory/Chest: Present: Clear to Auscultation, Good Air Exchange. No: Respiratory Distress, Accessory Muscle Use Cardiovascular: Present: Regular Rate and Rhythm, Normal S1, S2, Peripheal Pulses Present Abdomen: Present: Other (soft). No: Tenderness Upper Extremity: Present: Normal ROM, NORMAL PULSES, Swelling (mild at PIP and MCP joints bilaterally), Neurovascularly Intact, Capillary Refill < 2s. No: Cyanosis, Edema, Tenderness, Erythema, Temperature Abnormalties, Deformity Lower Extremity: Present: Normal Inspection, Normal ROM. No: Tenderness Neurological: Present: GCS=15, Speech Normal, Motor Func Grossly Intact, Normal Sensory Function, Gait Normal Skin: Present: Warm, Dry, Normal Color. No: Rashes Psychiatric: Present: Alert, Oriented x 3, Normal Insight, Normal Concentration, Normal Affect, Normal Mood Medical Decision Making ED Course and Treatment: Initial Plan: * Toradol * Tylenol * Prednisone 19:25 Case discussed with ED attending Dr. Black who recommends Prednisone dose of 60mg PO for 4 days, first dose here. Advised PMD followup as scheduled. Diagnostic testing results and plan of care discussed with patient. Strict instructions given regarding prescription use, importance of followup, and signs/symptoms to return to ER including chest pain, SOB, fever, numbness, weakness, paresthesias, or any other new/worsening symptoms. Pt verbalized understanding of discussion. Patient is A&Ox3, ambulating with steady gait, with vital signs stable for discharge. Disposition/Present on Arrival - Present on Arrival Any Indicators Present on Arrival: No History of DVT/PE: No History of Uncontrolled Diabetes: No Urinary Catheter: No History of Decub. Ulcer: No History Surgical Site Infection Following: None - Disposition Have Diagnosis and Disposition been Completed?: Yes Diagnosis: Rheumatoid arthritis flare, Chronic pain Disposition: HOME/ ROUTINE Disposition Time: 19:00 Patient Plan: Discharge Condition: STABLE Discharge Instructions (ExitCare): Chronic Pain (DC), Rheumatoid Arthritis (DC) Print Language: TAJIK Additional Instructions: Prednisona 3 tabletas diarias por 3 chavez ms Ibuprofeno cada 6-8 horas segn sea necesario con alimentos Tylenol cada 4 horas segn sea necesario Seguimiento con mdico primario segn lo programado el nano Regrese a la sarah de emergencias con cualquier sntoma nuevo o que empeore. Prescriptions: Ibuprofen [Motrin Tab] 600 mg PO Q8H PRN #12 tab PRN Reason: Pain, Moderate (4-7) predniSONE [predniSONE Tab] 60 mg PO DAILY #9 tab Ref[place]: [facility] [place] [facility] [place] - Follow up with primary Dottie Loya MD [Medical Doctor] - Follow up with primary Forms: [email or web address] (Indonesian), [email or web address] (Armenian)
== END 2019-02-14 19:26 | disposition home or self-care (01) ==
LOC: ED 17:48
DX: M06.9 Rheumatoid arthritis, unspecified (principal); G89.29 Other chronic pain
CPT/HCPCS: 96372; 99282; J1885